=== PATIENT | male | born 1985 | race Caucasian/White ===

== ENCOUNTER → 2021-05-10 09:26 | Outpatient (BNVA) | payer OTHER, SELFPAY | PROVIDERS: PCP Internal Medicine; Visit Provider Internal Medicine | DX: S67.194A Crushing injury of right ring finger, initial encounter (principal); W24.0XXA Contact with lifting devices, not elsewhere classified, initial encounter | CPT/HCPCS: 12001; 29130; 73140; 99202 ==

== ENCOUNTER → 2021-05-12 08:58 | Outpatient (BNVA) | payer OTHER, SELFPAY | PROVIDERS: PCP Internal Medicine; Visit Provider Physician Assistant | DX: S67.194A Crushing injury of right ring finger, initial encounter (principal); X58.XXXA Exposure to other specified factors, initial encounter | CPT/HCPCS: 99213 ==

== ENCOUNTER → 2021-05-16 13:33 | Outpatient (BNVA) | payer OTHER, SELFPAY | PROVIDERS: PCP Internal Medicine; Visit Provider Physician Assistant Medical | DX: S67.194A Crushing injury of right ring finger, initial encounter (principal); W23.0XXA Caught, crushed, jammed, or pinched between moving objects, initial encounter | CPT/HCPCS: 99213 ==

== ENCOUNTER → 2021-05-23 11:11 | Outpatient (BNVA) | payer OTHER, SELFPAY | PROVIDERS: PCP Internal Medicine; Visit Provider Physician Assistant Medical | DX: S61.314A Laceration without foreign body of right ring finger with damage to nail, initial encounter (principal); W23.0XXA Caught, crushed, jammed, or pinched between moving objects, initial encounter | CPT/HCPCS: 99213 ==

== ENCOUNTER → 2021-06-06 11:02 | Outpatient (BNVA) | payer OTHER, SELFPAY | PROVIDERS: PCP Internal Medicine; Visit Provider Internal Medicine | DX: S61.314D Laceration without foreign body of right ring finger with damage to nail, subsequent encounter (principal); W23.0XXD Caught, crushed, jammed, or pinched between moving objects, subsequent encounter | CPT/HCPCS: 99213 ==

== ENCOUNTER → 2021-06-20 10:33 | Outpatient (BNVA) | payer OTHER, SELFPAY | PROVIDERS: PCP Internal Medicine; Visit Provider Internal Medicine | DX: S62.604D Fracture of unspecified phalanx of right ring finger, subsequent encounter for fracture with routine healing (principal); W23.0XXD Caught, crushed, jammed, or pinched between moving objects, subsequent encounter | CPT/HCPCS: 99213 ==

== ENCOUNTER → 2021-07-12 13:16 | Outpatient (BNVA) | payer OTHER, SELFPAY | PROVIDERS: PCP Internal Medicine; Visit Provider Internal Medicine | DX: S62.634D Displaced fracture of distal phalanx of right ring finger, subsequent encounter for fracture with routine healing (principal); W23.0XXD Caught, crushed, jammed, or pinched between moving objects, subsequent encounter | CPT/HCPCS: 99213 ==

== ENCOUNTER → 2023-01-30 08:09 | Outpatient (BNVA) | payer SELFPAY | PROVIDERS: PCP Internal Medicine; Visit Provider Internal Medicine | DX: Z02.79 Encounter for issue of other medical certificate (principal) ==

== ENCOUNTER 2024-06-28 23:48 | Inpatient (IN) | payer BC, SELFPAY ==
--- NOTE | ~2024-06-28 | CT_ITS ---
CLINICAL HISTORY: S p appendectomy, RUL tenderness R O hernia, diver CT abdomen and pelvis with contrast Comparison: CT - CT ABDOMEN PELVIS W IV CON - 06/29/24 04:46 EST Findings: The lung bases are clear. The liver, spleen, gallbladder, adrenal glands and pancreas are unremarkable. The kidneys, ureters and bladder are within normal limits. There is pronounced abnormal stranding about a thickened segment of sigmoid colon. The inflammatory change extends to a loop of thickened distal ileum. Reference axial images 72 through 79. Tiny foci of free air are present between these 2 bowel loops on axial 77. There is no drainable abscess currently. Small fat containing inguinal hernias. No acute osseous finding. Impression: Moderately severe diverticulitis with evidence of microperforation and reactive thickening of an adjacent loop of ileum. No obstruction or drainable abscess. Follow-up is recommended to ensure resolution. This document has been electronically signed by: Edy Aguilar MD on 06/29/2024 05:53:00
[2024-06-28 23:50] VITALS: BP 119/65; PULSE 100; RESP 18; TEMP 36.9; O2SAT 98; BMI 34.0
[2024-06-29 00:06] LABS: MANUAL DIFF FLAG NO
[2024-06-29 00:09] LABS: Basophils Absolute Auto 0.1 X10*3/uL (0.0-0.2); Basophils Percent Auto 0.4 % (0-2); Eosinophils Absolute Auto 0.1 X10*3/uL (0.0-0.4); Eosinophils Percent Auto 0.5 % (0-4); Hematocrit 44.8 % (42.0-52.0); Hemoglobin 15.9 g/dl (14.0-18.0); Imm Gran Abs Auto 0.05 X10*3/uL (0.00-0.03); Imm Gran Pct Auto 0.4 % (0.0-0.4); Lymphocytes Absolute Auto 2.2 X10*3/uL (1.2-4.9); Mean Corpuscular HGB Conc 35.5 g/dl (31.0-36.0); Mean Corpuscular Hemoglobin 29.1 pg (27.0-33.0); Mean Corpuscular Volume 82.1 fL (80.0-98.0); Mean Platelet Volume 10.4 fL (9.4-12.4); Monocytes Absolute Auto 1.2 X10*3/uL (0.1-1.2); Monocytes Percent Auto 8.9 % (2-11); Neutrophils Absolute Auto 9.5 x10*3/uL (2.0-8.3); Neutrophils Percent Auto 72.8 % (45-73); Platelet Count 257 X10*3/uL (160-400); Red Blood Count 5.46 X10*6/uL (4.60-5.80); Red Cell Distribution Width 12.6 % (11.0-16.0); White Blood Count 13.1 X10*3/uL (4.8-10.8)
[2024-06-29 01:12] VITALS: BP 118/59; PULSE 88; RESP 20; TEMP 37; O2SAT 96
[2024-06-29 01:30] LABS: Appearance Urine Clear; Color Urine Yellow; Glucose Urine UA Negative (Negative); Leukocyte Esterase Urine Negative (Negative); Nitrite Urine Negative (Negative); PH 5.5 (5.0-9.0); Specific Gravity - Urine 1.015 (1.005-1.025); Urine Blood Negative (Negative); Urine Ketones Negative (Negative); Urine Protein Negative (Neg-Trace)
[2024-06-29 01:35] LABS: Bacteria Urine None Seen (None Seen); Hyaline Casts Urine 0-2 /LPF (0-2); RBC Urine 0-2 /HPF (0-2); Squamous Epithelial Cell Urine 0-2 /HPF (0-2); WBC Urine 0-5 /HPF (0-5)
[2024-06-29 03:13] LABS: Anion Gap 14 (12-20)
[2024-06-29 03:18] LABS: Alanine Aminotransferase 54 U/L (0-40); Albumin Level 4.6 g/dL (3.5-5.0); Alkaline Phosphatase 92 U/L (39-117); Aspartate Amino Transferase 24 U/L (5-37); Bilirubin Total 0.8 mg/dL (0.0-1.0); Blood Urea Nitrogen 9 mg/dL (9-16); Calcium 8.9 mg/dL (8.4-10.2); Carbon Dioxide 23 mmol/L (22-29); Chloride 106 mmol/L (96-108); Creatinine Clr Calc Pharmacy 164.8; Estimated Glomerular Filt Rate > 60; Glucose Random 94 mg/dL (60-115); Lipase 16 U/L (8-78); Potassium 3.6 mmol/L (3.3-5.1); Sodium 139 mmol/L (135-145); Total Protein 8.1 g/dL (6.5-8.0)
--- NOTE | 2024-06-29 04:29 | ED.ABDPAIN ---
HPI - Abdominal Pain General Chief Complaint: Abdominal Pain Stated Complaint: abd pain Time Seen by Provider: 06/29/24 04:27 Source: patient Mode of arrival: ambulatory Limitations: no limitations History of Present Illness ED Provider: Dr. Donavan Chaney HPI narrative: 38-year-old male with a history of hernia repair, appendectomy who presents emergency department for evaluation of lower abdominal pain x2 days. Patient states that since his hernia repair 1 year prior he was had constant pain in his lower abdomen. He states over the past 2 days however this pain is change in his become sharp, severe, 9/10. Patient states that he was had a decreased appetite and food seems to make the pain worse. He denied fever but did have chills. He denied chest pain, shortness of breath, dyspnea on exertion. He had no nausea, vomiting, diarrhea, frequency, urgency or dysuria. He did not take any medications for his pain. Related Data Previous Rx's ?Medication ?Instructions ?Recorded amoxicillin 875 mg-potassium 1 tab PO BID #14 tabs 07/01/24 clavulanate 125 mg tablet oxycodone 5 mg tablet 5 mg PO Q4H PRN pain (scale score 07/01/24 7-10) #10 tabs Allergies Allergy/AdvReac Type Severity Reaction Status Date / Time No Known Allergies Allergy Verified 06/28/24 23:52 [No Known Allergies*] Review of Systems Review of Systems Yes all other systems are reviewed and are negative [facility] Social History Social History Household Members: Spouse and Children Patient Tobacco Use Status: Never used Tobacco service: No Physical Exam ED Vital Signs: Vital Signs - 24 hr 06/28/24 23:50 06/29/24 01:12 06/29/24 04:49 Temperature 98.4 F 98.6 F Pulse Rate 100 88 84 Respiratory Rate 18 20 20 Blood Pressure 119/65 118/59 L 115/51 L Pulse Oximetry 98 96 98 Oxygen Delivery Method Room Air Room Air Room Air BMI result Body Mass Index 34.0 Vital signs were normal Exam: General: Awake, alert in no distress Head: Normocephalic, atraumatic EENT: PERRL, Lids normal, sclera normal, conjunctiva normal, nose normal , ears normal, throat without erythema or exudates Neck: Supple, no adenopathy Lung: breath sounds symmetric, no wheezing, rales or rhonchi Chest: symmetric movement, nontender Heart: regular rate and rhythm, normal S1, S2, 2/6 systolic murmur best heard in the left lower sternal border Abdomen: soft, moderate right lower quadrant tenderness, mild right upper quadrant tenderness, negative Bishop sign and moderate left lower quadrant tenderness with no rebound, no voluntary or involuntary guarding Back: no vertebral tenderness, no CVAT Extremities: no deformities, moves all extremities symmetrically Neuro: Awake, alert, oriented, normal speech, cranial nerves intact, moves all extremities symmetrically Psych: Pleasant, cooperative Medical Decision Making Medical Decision Making [facility] Narrative: 38-year-old male with a history of hernia repair, appendectomy who presents emergency department for evaluation of lower abdominal pain x2 days. Patient states that since his hernia repair 1 year prior he was had constant pain in his lower abdomen. He states over the past 2 days however this pain is change in his become sharp, severe, 9/10. Patient states that he was had a decreased appetite and food seems to make the pain worse. Vital signs were normal. Physical examination revealed mild right upper quadrant tenderness and moderate right lower quadrant tenderness and moderate left lower quadrant tenderness. Differential diagnosis: ?Includes but is not limited to pancreatitis, diverticulitis, incarcerated hernia, partial small-bowel obstruction, anemia, electrolyte abnormalities Course: 04:43 My independent interpretation patient's laboratory evaluation as follows: Elevated white blood count 64927. Elevated ALT of 52. Lipase was normal. Urinalysis was negative. This time I do not have a clear etiology for the patient's pain, I did order a CT scan of the abdomen pelvis with IV contrast. Patient was also ordered to get normal saline x1 L and Toradol 15 mg IV. 06:[address] scan revealed moderately severe diverticulitis with evidence of microperforation and reactive thickening of an adjacent loop of ileum. No obstruction or drainable abscess. Given this finding, I ordered blood cultures x2, lactic acid, ESR and sed rate. Patient was treated with Zosyn 4.5 g IV. I did discuss the patient's presentation over tiger text with the covering surgeon, Dr. Arambula and he admitted the patient to his service for futher treatment. Admission/Observation Consideration of admission/observation: Escalation of care including admission/observation considered (Yes) Lab Data [facility] Lab Attestation statement: I reviewed the patient's lab results. 06/30/24 05:27 06/28/24 23:59 Labs: Lab Results 06/28/24 06/29/24 06/29/24 Range/Units 23:59 01:23 06:24 WBC 13.1 H (4.8-10.8) X10*3/uL RBC 5.46 (4.60-5.80) X10*6/uL Hgb 15.9 (14.0-18.0) g/dl Hct 44.8 (42.0-52.0) % MCV 82.1 (80.0-98.0) fL MCH 29.1 (27.0-33.0) pg MCHC 35.5 (31.0-36.0) g/dl RDW 12.6 (11.0-16.0) % Plt Count 257 (160-400) X10*3/uL MPV 10.4 (9.4-12.4) fL Immature Gran % (Auto) 0.4 (0.0-0.4) % Neut % (Auto) 72.8 (45-73) % Lymph % (Auto) 17.0 L (20-40) % Peach % (Auto) 8.9 (2-11) % Eos % (Auto) 0.5 (0-4) % Baso % (Auto) 0.4 (0-2) % Lymph # (Auto) 2.2 (1.2-4.9) X10*3/uL [place] # (Auto) 1.2 (0.1-1.2) X10*3/uL Eos # (Auto) 0.1 (0.0-0.4) X10*3/uL Baso # (Auto) 0.1 (0.0-0.2) X10*3/uL Abs Immat Gran (auto) 0.05 H (0.00-0.03) X10*3/uL Absolute Neuts (auto) 9.5 H (2.0-8.3) x10*3/uL Absolute Nucleated RBC 0.000 (0.0-0.012) X10*3/uL Nucleated RBC % (auto) 0.0 (0.0-0.2) /100WBC ESR 8 (0-15) MM/HR Sodium 139 (135-145) mmol/L Potassium 3.6 (3.3-5.1) mmol/L Chloride 106 (96-108) mmol/L Carbon Dioxide 23 (22-29) mmol/L Anion Gap 14 (12-20) BUN 9 (9-16) mg/dL Creatinine 0.73 (0.5-1.4) mg/dL Estim Creat Clear Calc 164.8 Estimated GFR > 60 Random Glucose 94 (60-115) mg/dL Lactic Acid 0.7 (0.5-2.0) mmol/L Calcium 8.9 (8.4-10.2) mg/dL Total Bilirubin 0.8 (0.0-1.0) mg/dL AST 24 (5-37) U/L ALT 54 H (0-40) U/L Alkaline Phosphatase 92 (39-117) U/L C-Reactive Protein 6.65 H (< or = 0.50) mg/dL Total Protein 8.1 H (6.5-8.0) g/dL Albumin 4.6 (3.5-5.0) g/dL Lipase 16 (8-78) U/L Urine Color Yellow Urine Appearance Clear Urine pH 5.5 (5.0-9.0) Ur Specific [place] 1.015 (1.005-1.025) Urine Protein Negative (Neg-Trace) mg/dL Urine Glucose (UA) Negative (Negative) mg/dL Urine Ketones Negative (Negative) mg/dL Urine Blood Negative (Negative) Urine Nitrite Negative (Negative) Ur Leukocyte Esterase Negative (Negative) Urine RBC 0-2 (0-2) /HPF Urine WBC 0-5 (0-5) /HPF Ur Squamous Epith Cells 0-2 (0-2) /HPF Urine Bacteria None Seen (None Seen) Hyaline Casts 0-2 (0-2) /LPF Radiology Impression Discussion of test interpretation with radiology: I have reviewed the radiologist's reading. Radiologist Impression: CT abdomen and pelvis with contrast Findings: The lung bases are clear. The liver, spleen, gallbladder, adrenal glands and pancreas are unremarkable. The kidneys, ureters and bladder are within normal limits. There is pronounced abnormal stranding about a thickened segment of sigmoid colon. The inflammatory change extends to a loop of thickened distal ileum. Reference axial images 72 through 79. Tiny foci of free air are present between these 2 bowel loops on axial 77. There is no drainable abscess currently. Small fat containing inguinal hernias. No acute osseous finding. Impression: Moderately severe diverticulitis with evidence of microperforation and reactive thickening of an adjacent loop of ileum. No obstruction or drainable abscess. Follow-up is recommended to ensure resolution. This document has been electronically signed by: Edy Aguilar MD on 06/29/2024 05:53:00 Medications Administered Discontinued Medications Generic Name Dose Route Start Last Admin Trade Name Freq PRN Reason Stop Dose Admin Acetaminophen 650 mg 06/29/24 07:47 06/30/24 20:34 Acetaminophen 325 Mg Tablet PO 650 mg Q6H PRN Administration Pain, Mild 1-3,fever,headache Hydromorphone HCl 0.5 mg 06/29/24 07:47 06/30/24 00:05 Hydromorphone Hcl 0.5 Mg/0.5 Ml Syringe IVPUSH 0.5 mg Q3H PRN Administration Pain, Severe (Pain Scale 7-10) Protocol Sodium Chloride 1,000 mls @ 999 mls/hr 06/29/24 04:35 06/29/24 06:48 Ns IV 06/29/24 05:35 Infused .Q1H1M STA Infusion Piperacillin Sod/Tazobactam 100 mls @ 200 mls/hr 06/29/24 06:11 06/29/24 07:18 Sod 4.5 gm/ Sodium Chloride IV 06/29/24 06:40 Infused ONCE ONE Infusion Dextrose/Lactated Ringer's 1,000 mls @ 125 mls/hr 06/29/24 08:00 07/01/24 05:41 D5lr IVCONT 125 mls/hr .Q8H [facility] Infusion Piperacillin Sod/Tazobactam 50 mls @ 100 mls/hr 06/29/24 12:00 07/01/24 05:41 Sod 3.375 gm/ Sodium Chloride IV Infused Q6H [facility] Infusion Iohexol 85 ml 06/29/24 05:00 06/29/24 05:00 Iohexol 350 Mg/Ml 100 Ml Infus..Btl IV 06/29/24 05:01 85 ml ONCE ONE Administration Ketorolac Tromethamine 15 mg 06/29/24 04:35 06/29/24 04:47 Ketorolac Tromethamine 15 Mg/Ml Vial IVPUSH 06/29/24 04:36 15 mg ONCE STA Administration Oxycodone HCl 5 mg 06/29/24 07:47 06/30/24 20:34 Oxycodone Hcl Immed Release 5 Mg Tablet PO 5 mg Q6H PRN Administration Pain, Moderate(Pain Scale 4-6) Sodium Chloride 3 ml 06/29/24 08:00 07/01/24 07:04 0.9 % Sodium Chloride Flush 3 Ml Syringe IVFLUSH Not Given QSHIFT [facility] Critical Care Time Critical Care Time Critical Care Time: Yes Total Critical Care Time: 45 Attestation: Critical Care: The patient was critically ill with a high probability of imminent or life threatening deterioration. I spent greater than 30 minutes of discontinuous time evaluating the patient,delivering critical care at the bedside, discussing and evaluating pertinent data with consultants. Critical care time does not include time spent performing separately billable procedures or teaching. Total time spent performing critical care was 45 minutes. Discharge Plan Discharge Clinical Impression: Perforation of sigmoid colon due to diverticulitis, Abdominal pain Patient Disposition: Admitted As Inpatient Interventions: Admission Worksheet (ED) Last Done: 06/29/24 20:31 Discharge Date/Time: 06/29/24 21:15
[2024-06-29] MEDS: 0.9 % Sodium Chloride 1,000 ML 999 ML IV (04:46)
[2024-06-29] MEDS: Ketorolac Tromethamine 15 MG/ML VIAL IVPUSH (04:47)
[2024-06-29 04:49] VITALS: BP 115/51; PULSE 84; RESP 20; O2SAT 98
[2024-06-29] MEDS: iohexoL 350 MG/ML 100 ML INFUS..BTL 85 ML IV (05:00)
[2024-06-29 06:34] VITALS: BP 110/51; PULSE 77; RESP 20; TEMP 36.7; O2SAT 97
[2024-06-29] MEDS: Piperacillin Sodium/Tazobactam 4.5 GM in 0.9 % Sodium Chloride 100 ML IV (06:34)
[2024-06-29 06:46] LABS: C Reactive Protein 6.65 mg/dL (< or = 0.50)
[2024-06-29 06:47] LABS: Lactic Acid 0.7 mmol/L (0.5-2.0)
[2024-06-29 07:34] LABS: Erythrocyte Sedimentation Rate 8 MM/HR (0-15)
--- NOTE | 2024-06-29 07:52 | PM.HPGS ---
History of Present Illness History of Present Illness Date of Service: 06/29/24 Chief complaint: abd pain Narrative: Anton Johansen is a 38 year old male presenting with complaints of abdominal pain in the lower abdomen for approximately 2 days duration. He reports undergoing a hernia repair approximately 1 year ago and having constant lower abdominal pain since then. He is also status post appendectomy. The pain has become more sharp over the last 2-3 days and upon presentation to the emergency department was about 9/10 in severity. He reports decreased appetite but denies nausea, vomiting, fever, chills, diarrhea or constipation. He had a normal bowel movement yesterday without bleeding. He denies a previous episode of similar symptoms. Workup in the emergency department revealed an elevated WBC of 13.1. CT abdomen and pelvis revealed sigmoid diverticulitis with microperforation. An adjacent loop of ileum is thickened as well. He is admitted to the surgical service for further management of his acute sigmoid diverticulitis. Review of Systems Review of Systems: Yes all other systems are reviewed and are negative PMF[facility] Social History Social History Smoked in Last 30 Days: No Use of substances other than those prescribed or required for medical reasons: No Advance Directives: No Do you have a plan to hurt others: No Plan Meds Allergies Allergy/AdvReac Type Severity Reaction Status Date / Time No Known Allergies Allergy Verified 06/28/24 23:52 [No Known Allergies*] Active Medications: Current Medications Acetaminophen (Acetaminophen 325 Mg Tablet) 650 mg PO Q6H PRN PRN Reason: Pain, Mild 1-3,fever,headache Calcium Carbonate (Calcium Carbonate 750 Mg Tab.Chew) 750 mg PO Q4H PRN PRN Reason: Heartburn Hydromorphone HCl (Hydromorphone Hcl 0.5 Mg/0.5 Ml Syringe) 0.5 mg IVPUSH Q3H PRN; Protocol PRN Reason: Pain, Severe (Pain Scale 7-10) Dextrose/Lactated Ringer's (D5lr) 1,000 mls @ 125 mls/hr IVCONT .Q8H [facility] Piperacillin Sod/Tazobactam (Sod 3.375 gm/ Sodium Chloride) 50 mls @ 100 mls/hr IV Q6H [facility] Magnesium Hydroxide (Milk Of Magnesia 30 Ml Oral.Susp) 30 ml PO DAILY PRN PRN Reason: Constipation Melatonin (Melatonin 3 Mg Tablet) 6 mg PO BEDTIME PRN PRN Reason: Insomnia Ondansetron HCl (Ondansetron Hcl 4 Mg/2 Ml Vial) 4 mg IVPUSH QID PRN PRN Reason: Nausea Oxycodone HCl (Oxycodone Hcl Immed Release 5 Mg Tablet) 5 mg PO Q6H PRN PRN Reason: Pain, Moderate(Pain Scale 4-6) Sodium Chloride (0.9 % Sodium Chloride Flush 3 Ml Syringe) 3 ml IVFLUSH QSHIFT [facility] Physical Exam Vital Signs: Vital Signs: Last Vital Signs Temp 98.1 F 06/29/24 06:34 Pulse 77 06/29/24 06:34 Resp 20 06/29/24 06:34 BP 110/51 L 06/29/24 06:34 Pulse Ox 97 06/29/24 06:34 O2 Del Method Room Air 06/29/24 06:34 BMI result Body Mass Index 34.0 Const: General: cooperative and no acute distress Nutritional Appearance: well nourished Orientation/consciousness: patient oriented x3 Limitations: no limitations HEENT: Head: Yes normocephalic and Yes atraumatic Ears: hearing grossly normal bilaterally Resp: Effort & Inspection: normal respiratory effort, no audible wheezes, no cough and no respiratory distress Cardio: Jugular venous distension: no JVD GI: Inspection: Yes normal to inspection Palpation (GI): Soft to palpation, Tenderness to palpation present (GI) in the LLQ, no guarding, not rigid and No hepatosplenomegaly present Percussion: Yes normal to percussion Auscultation: normal bowel sounds Rectal Exam - Male: Yes deferred Skin: Other: Warm, dry, no rash Neuro: General: patient oriented x3 Extrem: General: Yes no clubbing, cyanosis or edema Results Results Labs: Short CBC 06/28/24 Range/Units 23:59 WBC 13.1 H (4.8-10.8) X10*3/uL Hgb 15.9 (14.0-18.0) g/dl Hct 44.8 (42.0-52.0) % Plt Count 257 (160-400) X10*3/uL BMP 06/28/24 23:59 Sodium 139 Potassium 3.6 Chloride 106 Carbon Dioxide 23 BUN 9 Creatinine 0.73 Calcium 8.9 Liver Function 02/01/25 Range/Units 23:59 Total Bilirubin 0.8 (0.0-1.0) mg/dL AST 24 (5-37) U/L ALT 54 H (0-40) U/L Alkaline Phosphatase 92 (39-117) U/L Albumin 4.6 (3.5-5.0) g/dL Urine 06/29/24 Range/Units 01:23 Urine Color Yellow Urine Appearance Clear Urine pH 5.5 (5.0-9.0) Ur Specific [place] 1.015 (1.005-1.025) Urine Protein Negative (Neg-Trace) mg/dL Urine Glucose (UA) Negative (Negative) mg/dL Abdomen CT scan report/results: image reviewed CT scan - pelvis: image reviewed Assessment and Plan (1) Perforation of sigmoid colon due to diverticulitis: Status: Acute Plan 38-year-old male patient presenting with new onset of abdominal pain left lower quadrant found on workup to have tenderness in the left lower quadrant, elevated WBC and CT findings suggestive of sigmoid diverticulitis. CT reveals evidence of a microperforation as well. He is being admitted to the surgical service for IV antibiotics. I reviewed the CT findings in detail with the patient and he expressed understanding. We will keep on clear liquids, start on Zosyn. Repeat CBC in a.m. tomorrow. Quality Stroke Does the patient have a stroke diagnosis?: No VTE Prior VTE?: No VTE Risk Level:: Surgical - low VTE Device Contraindication: N/A - Device Ordered VTE Drug Contraindication: Treatment Not Indicated Procedures Date of Service Date of Service: 06/29/24
[2024-06-29] MEDS: Dextrose 5 % and Lactated Ring 1,000 ML 125 ML IVCONT ×2 (08:45→16:24)
--- NOTE | 2024-06-29 09:33 | PHA.MEDREC ---
Addendum entered by Kandis Lam RPh 06/29/24 09:45: [facility] reviewed Original Note: Pharmacy Consult ? Medication Reconciliation Pharmacy has completed the medication reconciliation. Spoke with patient to confirm. He is no longer using any creams.
--- NOTE | 2024-06-29 09:36 | PC.NURSE ---
this RN resumed care of pt at 0645. a&ox4. vss and up to date. pt offers no complaints at this time. denies pain or any episodes of nausea/vomiting/diarrhea. pt is on a clear liquid diet - declined offer of anything to eat/drink at this time. D5LR infusing @ 125mls/hr. pt pending bed assignment at this time. no sob/wob noted. respirations even/unlabored. plan of care ongoing. call oneill placed within reach.
[2024-06-29] MEDS: Piperacillin Sodium/Tazobactam 3.375 GM in 0.9 % Sodium Chloride 50 ML IV ×3 (12:33→23:56)
[2024-06-29] MEDS: HYDROmorphone HCl 0.5 MG/0.5 ML SYRINGE IVPUSH (16:24)
--- NOTE | 2024-06-29 16:40 | PC.NURSE ---
new bag of D5LR infusing @ 125mls/hr. pt reporting increase in lower abd pain - requesting prn medication. medication administered per provider order. effectiveness pending. pt otherwise continues to rest in no apparent distress. no sob/wob noted. respirations even/unlabored. plan of care ongoing. call oneill placed within reach.
[2024-06-29 17:03] VITALS: BP 116/57; PULSE 82; RESP 18; TEMP 36.8; O2SAT 96
[2024-06-29 20:35] VITALS: BP 132/55; PULSE 85; RESP 16; TEMP 37.2; O2SAT 99
[2024-06-29] MEDS: oxyCODONE HCl Immed Release 5 MG TABLET PO (20:37)
[2024-06-29 21:30] VITALS: BP 139/73; PULSE 86; RESP 18; TEMP 36.4; O2SAT 97
[2024-06-30] MEDS: HYDROmorphone HCl 0.5 MG/0.5 ML SYRINGE IVPUSH (00:05)
[2024-06-30 04:00] VITALS: BP 120/62; PULSE 75; RESP 18; TEMP 36.4; O2SAT 97
[2024-06-30 06:02] LABS: MANUAL DIFF FLAG NO
[2024-06-30] MEDS: Piperacillin Sodium/Tazobactam 3.375 GM in 0.9 % Sodium Chloride 50 ML IV ×4 (06:06→23:04)
[2024-06-30 06:20] LABS: Basophils Absolute Auto 0.1 X10*3/uL (0.0-0.2); Basophils Percent Auto 0.4 % (0-2); Eosinophils Absolute Auto 0.1 X10*3/uL (0.0-0.4); Eosinophils Percent Auto 0.6 % (0-4); Hematocrit 41.7 % (42.0-52.0); Hemoglobin 14.5 g/dl (14.0-18.0); Imm Gran Abs Auto 0.06 X10*3/uL (0.00-0.03); Imm Gran Pct Auto 0.5 % (0.0-0.4); Lymphocytes Absolute Auto 1.8 X10*3/uL (1.2-4.9); Mean Corpuscular HGB Conc 34.8 g/dl (31.0-36.0); Mean Corpuscular Volume 83.4 fL (80.0-98.0); Mean Platelet Volume 10.9 fL (9.4-12.4); Monocytes Absolute Auto 1.1 X10*3/uL (0.1-1.2); Monocytes Percent Auto 9.7 % (2-11); Neutrophils Absolute Auto 8.3 x10*3/uL (2.0-8.3); Neutrophils Percent Auto 72.8 % (45-73); Platelet Count 227 X10*3/uL (160-400); Red Cell Distribution Width 12.6 % (11.0-16.0); White Blood Count 11.4 X10*3/uL (4.8-10.8)
[2024-06-30] MEDS: oxyCODONE HCl Immed Release 5 MG TABLET PO ×2 (07:34→20:34)
[2024-06-30] MEDS: Dextrose 5 % and Lactated Ring 1,000 ML 125 ML IVCONT ×3 (07:35→20:37)
[2024-06-30 07:38] VITALS: BP 126/61; PULSE 82; RESP 16; TEMP 36.5; O2SAT 96
--- NOTE | 2024-06-30 09:36 | MHC.CM.PN ---
PT IS INDEPENDENT HAS NO SERVICES DC PLAN HOME NO SERVICES PT HAS OWN RIDE HOME
--- NOTE | 2024-06-30 10:02 | P.PNGS_ITS ---
Subjective Subjective Date of Service: 06/30/24 Interval history: Thinks he feels a little better but continues to need pain medication. Tolerating liquids without nausea, vomiting. OOB and ambulating. Physical Exam 2 Vital Signs: Vital Signs: Last Vital Signs Temp 97.7 F 06/30/24 07:38 Pulse 82 06/30/24 07:38 Resp 16 06/30/24 07:38 BP 126/61 06/30/24 07:38 Pulse Ox 96 06/30/24 07:38 O2 Del Method Room Air 06/30/24 07:38 BMI result Body Mass Index 34.0 Const: General: comfortable, no acute distress and alert O rientation/consciousness: patient oriented x3 Resp: Effort & Inspection: normal respiratory effort GI: Inspection: No distended Palpation (GI): Soft to palpation, Tenderness to palpation present (GI) (pinpoint LLQ tenderness, moderate ) and no guarding Skin: General skin exam: no rashes or lesions noted Neuro: General: patient oriented x3 Objective Data Active Medications Acetaminophen (Acetaminophen 325 Mg Tablet) 650 mg PO Q6H PRN PRN Reason: Pain, Mild 1-3,fever,headache Calcium Carbonate (Calcium Carbonate 750 Mg Tab.Chew) 750 mg PO Q4H PRN PRN Reason: Heartburn Hydromorphone HCl (Hydromorphone Hcl 0.5 Mg/0.5 Ml Syringe) 0.5 mg IVPUSH Q3H PRN; Protocol PRN Reason: Pain, Severe (Pain Scale 7-10) Last Admin: 06/30/24 00:05 Dose: 0.5 mg Documented By: MALCOLM Dextrose/Lactated Ringer's (D5lr) 1,000 mls @ 125 mls/hr IVCONT .Q8H [facility] Last Admin: 06/30/24 07:35 Dose: 125 mls/hr Documented By: ARMINDA Piperacillin Sod/Tazobactam (Sod 3.375 gm/ Sodium Chloride) 50 mls @ 100 mls/hr IV Q6H [facility] Last Infusion: 06/30/24 07:25 Dose: Infused Documented By: ARMINDA Magnesium Hydroxide (Milk Of Magnesia 30 Ml Oral.Susp) 30 ml PO DAILY PRN PRN Reason: Constipation Melatonin (Melatonin 3 Mg Tablet) 6 mg PO BEDTIME PRN PRN Reason: Insomnia Ondansetron HCl (Ondansetron Hcl 4 Mg/2 Ml Vial) 4 mg IVPUSH QID PRN PRN Reason: Nausea Oxycodone HCl (Oxycodone Hcl Immed Release 5 Mg Tablet) 5 mg PO Q6H PRN PRN Reason: Pain, Moderate(Pain Scale 4-6) Last Admin: 06/30/24 07:34 Dose: 5 mg Documented By: ARMINDA Sodium Chloride (0.9 % Sodium Chloride Flush 3 Ml Syringe) 3 ml IVFLUSH QSHIFT [facility] Last Admin: 06/30/24 07:20 Dose: Not Given Documented By: ARMINDA Non-Admin Reason: IV Running Labs 06/30/24 05:27 06/28/24 23:59 Labs: Laboratory Results - last 24 hr 06/30/24 05:27 MCV 83.4 MCH 29.0 MCHC 34.8 RDW 12.6 Plt Count 227 MPV 10.9 Immature Gran % (Auto) 0.5 H Neut % (Auto) 72.8 Lymph % (Auto) 16.0 L [place] % (Auto) 9.7 Eos % (Auto) 0.6 Baso % (Auto) 0.4 Lymph # (Auto) 1.8 [place] # (Auto) 1.1 Eos # (Auto) 0.1 Baso # (Auto) 0.1 Abs Immat Gran (auto) 0.06 H Absolute Neuts (auto) 8.3 Absolute Nucleated RBC 0.000 Nucleated RBC % (auto) 0.0 Microbiology Microbiology Results: Microbiology 06/29/24 06:33 Blood Culture - Preliminary Blood - Venous No growth after 24 hours. 06/29/24 06:24 Blood Culture - Preliminary Blood - Venous No growth after 24 hours. Procedures Date of Service Date of Service: 06/30/24 Progress Note: A&P Assessment and plan (1) Perforation of sigmoid colon due to diverticulitis: Status: Acute Plan 38 year old male admitted with sigmoid diverticulitis with microperforation. Somewhat improved symptomatically this morning. Abd with moderate LLQ tenderness without peritoneal signs. WBC improved this morning. Will continue conserative measures with IV abx, IVF, and continue clear liquids for now. Encouraged OOB/ambulation. Patient comfortable with plan. Time Spent With Patient Time: Total time managing care of this patient today ____ minutes. Quality Stroke Does the patient have a stroke diagnosis?: No VTE Prior VTE?: No VTE Risk Level:: Surgical - low VTE Device Contraindication: N/A - Device Ordered VTE Drug Contraindication: Treatment Not Indicated
[2024-06-30 15:01] VITALS: BP 132/75; PULSE 80; RESP 18; TEMP 36.4; O2SAT 98
[2024-06-30] MEDS: Acetaminophen 325 MG TABLET 650 MG PO (20:34)
[2024-06-30] MEDS: 0.9 % Sodium Chloride Flush 3 ML SYRINGE IVFLUSH (23:07)
[2024-07-01 03:30] VITALS: BP 111/53; PULSE 73; RESP 18; TEMP 36.3; O2SAT 97
[2024-07-01] MEDS: Dextrose 5 % and Lactated Ring 1,000 ML 125 ML IVCONT (05:07)
[2024-07-01] MEDS: Piperacillin Sodium/Tazobactam 3.375 GM in 0.9 % Sodium Chloride 50 ML IV (05:07)
--- NOTE | 2024-07-01 07:30 | PM.PNGS ---
Subjective Subjective Date of Service: 07/01/24 <Lashawn Boss PA-C - Last Filed: 07/01/24 07:35> 07/01/24 <Stephon Arambula MD - Last Filed: 07/01/24 07:45> Interval history: Feels much improved this morning. Pain very mild. Tolerating solid diet without nausea, vomiting or worsening abd pain. Had a liquid BM yesterday with some increased pain but it resolved. Feels ready for discharge. <Lashawn Boss PA-C - Last Filed: 07/01/24 07:35> Physical Exam Vital Signs: Vital Signs: Last Vital Signs Temp 97.3 F 07/01/24 03:30 Pulse 73 07/01/24 03:30 Resp 18 07/01/24 03:30 BP 111/53 L 07/01/24 03:30 Pulse Ox 97 07/01/24 03:30 O2 Del Method Room Air 07/01/24 03:30 BMI result Body Mass Index 34.0 <Lashawn Boss PA-C - Last Filed: 07/01/24 07:35> Const: General: comfortable, no acute distress and alert <Lashawn Boss PA-C - Last Filed: 07/01/24 07:35> Orientation/consciousness: patient oriented x3 <Lashawn Boss PA-C - Last Filed: 07/01/24 07:35> Resp: Effort & Inspection: normal respiratory effort <Lashawn Boss PA-C - Last Filed: 07/01/24 07:35> GI: Inspection: No distended <Lashawn Boss PA-C - Last Filed: 07/01/24 07:35> Palpation (GI): Soft to palpation, nontender and no guarding <Lashawn Boss PA-C - Last Filed: 07/01/24 07:35> Percussion: Yes normal to percussion <SHAJI Valente Last Filed: 07/01/24 07:35> Skin: General skin exam: no rashes or lesions noted <Lashawn Boss PA-C - Last Filed: 07/01/24 07:35> Neuro: General: patient oriented x3 and moves all extremities <Lashawn Boss PA-C - Last Filed: 07/01/24 07:35> Objective Data Active Medications Acetaminophen (Acetaminophen 325 Mg Tablet) 650 mg PO Q6H PRN PRN Reason: Pain, Mild 1-3,fever,headache Last Admin: 06/30/24 20:34 Dose: 650 mg Documented By: NIKOLAY Calcium Carbonate (Calcium Carbonate 750 Mg Tab.Chew) 750 mg PO Q4H PRN PRN Reason: Heartburn Hydromorphone HCl (Hydromorphone Hcl 0.5 Mg/0.5 Ml Syringe) 0.5 mg IVPUSH Q3H PRN; Protocol PRN Reason: Pain, Severe (Pain Scale 7-10) Last Admin: 06/30/24 00:05 Dose: 0.5 mg Documented By: MALCOLM Dextrose/Lactated Ringer's (D5lr) 1,000 mls @ 125 mls/hr IVCONT .Q8H [facility] Last Infusion: 07/01/24 05:41 Dose: 125 mls/hr Documented By: NIKOLAY Piperacillin Sod/Tazobactam (Sod 3.375 gm/ Sodium Chloride) 50 mls @ 100 mls/hr IV Q6H [facility] Last Infusion: 07/01/24 05:41 Dose: Infused Documented By: NIKOLAY Magnesium Hydroxide (Milk Of Magnesia 30 Ml Oral.Susp) 30 ml PO DAILY PRN PRN Reason: Constipation Melatonin (Melatonin 3 Mg Tablet) 6 mg PO BEDTIME PRN PRN Reason: Insomnia Ondansetron HCl (Ondansetron Hcl 4 Mg/2 Ml Vial) 4 mg IVPUSH QID PRN PRN Reason: Nausea Oxycodone HCl (Oxycodone Hcl Immed Release 5 Mg Tablet) 5 mg PO Q6H PRN PRN Reason: Pain, Moderate(Pain Scale 4-6) Last Admin: 06/30/24 20:34 Dose: 5 mg Documented By: NIKOLAY Sodium Chloride (0.9 % Sodium Chloride Flush 3 Ml Syringe) 3 ml IVFLUSH QSHIFT [facility] Last Admin: 07/01/24 07:04 Dose: Not Given Documented By: ARMINDA Non-Admin Reason: IV Running <Lashawn Boss PA-C - Last Filed: 07/01/24 07:35> Labs CBC & Chem 7: 06/30/24 05:27 06/28/24 23:59 <Lashawn Boss PA-C - Last Filed: 07/01/24 07:35> Microbiology Microbiology Results: Microbiology 06/29/24 06:33 Blood Culture - Preliminary Blood - Venous No growth after 24 hours. 06/29/24 06:24 Blood Culture - Preliminary Blood - Venous No growth after 24 hours. <Lashawn Boss PA-C - Last Filed: 07/01/24 07:35> Procedures Date of Service Date of Service: 07/01/24 <Lashawn Boss PA-C - Last Filed: 07/01/24 07:35> 07/01/24 <Stephon Arambula MD - Last Filed: 07/01/24 07:45> Progress Note: A&P Assessment and plan (1) Perforation of sigmoid colon due to diverticulitis: Status: Acute <Lashawn Boss PA-C - Last Filed: 07/01/24 07:35> Assessment and Plan: 38 year old male admitted with sigmoid diverticulitis with microperforation. Clinically improved with resolved symptoms, tolerating solid diet, having bowel movements. Abd very benign, soft nontender. Stable for dc to home today on oral abx. F/u in office in 1 week. Patient comfortable with plan. <Lashawn Boss PA-C - Last Filed: 07/01/24 07:35> 38 year old male admitted with sigmoid diverticulitis with microperforation. Clinically improved with resolved symptoms, tolerating solid diet, having bowel movements. Abd very benign, soft nontender. Stable for dc to home today on oral abx. F/u in office in 1 week. Patient comfortable with plan. Patient independently examined and the above findings confirmed. He is much improved with minimal tenderness in the suprapubic location. Agree with discharge to home with follow up in the office in one week. Continue po antibiotics, Augmentin. <Stephon Arambula MD - Last Filed: 07/01/24 07:45> Time Spent With Patient Time: Total time managing care of this patient today ____ minutes. <Lashawn Boss PA-C - Last Filed: 07/01/24 07:35> Quality Stroke Does the patient have a stroke diagnosis?: No <Lashawn Boss PA-C - Last Filed: 07/01/24 07:35> VTE Prior VTE?: No <Lashawn Boss PA-C - Last Filed: 07/01/24 07:35> VTE Risk Level:: Surgical - low <Lashawn Boss PA-C - Last Filed: 07/01/24 07:35> VTE Device Contraindication: N/A - Device Ordered <Lashawn Boss PA-C - Last Filed: 07/01/24 07:35> VTE Drug Contraindication: Treatment Not Indicated <Lashawn Boss PA-C - Last Filed: 07/01/24 07:35>
[2024-07-01 07:55] VITALS: BP 115/56; PULSE 67; RESP 18; TEMP 36.1; O2SAT 97
--- NOTE | 2024-07-01 12:58 | MHC.CM.PN ---
Patient is discharged to home self care. He has arranged for private transport home.
--- NOTE | 2024-07-01 14:09 | P.DS_ITS ---
DS: Providers Provider Date of Service: 07/01/24 Date of admission: 06/29/24 07:48 Date of discharge: 07/01/24 Primary care physician: Arden Wilson MD Attending physician on admission: Stephon Arambula Attending physician on discharge: Stephon Arambula DS: Diagnosis Discharge Diagnosis (1) Perforation of sigmoid colon due to diverticulitis: Status: Acute DS: Summary Hospital Course Hospital Course: HPI AT ADMISSION: Anton Johansen is a 38 year old male presenting with complaints of abdominal pain in the lower abdomen for approximately 2 days duration. He reports undergoing a hernia repair approximately 1 year ago and having constant lower abdominal pain since then. He is also status post appendectomy. The pain has become more sharp over the last 2-3 days and upon presentation to the emergency department was about 9/10 in severity. He reports decreased appetite but denies nausea, vomiting, fever, chills, diarrhea or constipation. He had a normal bowel movement yesterday without bleeding. He denies a previous episode of similar symptoms. He denies prior colonoscopy. Workup in the emergency department revealed an elevated WBC of 13.1. CT abdomen and pelvis revealed sigmoid diverticulitis with microperforation. An adjacent loop of ileum is thickened as well. HOSPITAL COURSE: He was admitted to the surgical service for further management of his acute sigmoid diverticulitis. He was nontoxic appearing without peritoneal signs. Conservative measures were continued. He was kept on clear liquids, IV Zosyn, IVF. He had improvement in his symptoms and his diet was slowly advanced. He began moving his bowels. On the day of discharge, he had minimal pain. He was tolerating a solid diet. His abdomen was benign and soft and nontender. He was hemodynamically stable. He was discharged to home on 07/01/24 in stable condition on a course of oral augmentin. He is to follow up in the office in 1 week. Status at Discharge Functional status at discharge: independent ambulation Overall status at discharge: patient is progressing back to baseline Time Attestation Discharge Coordination Time (in mins): 30 Quality: Safe Use of Opioids Does Pt have an Active Cancer Diagnosis on the Problem List?: No Quality: Stroke Does the patient have a stroke diagnosis?: No Physical Exam Vital Signs: Vital Signs: Last Vital Signs Temp 97 F 07/01/24 07:55 Pulse 67 07/01/24 07:55 Resp 18 07/01/24 07:55 BP 115/56 L 07/01/24 07:55 Pulse Ox 97 07/01/24 07:55 O2 Del Method Room Air 07/01/24 07:55 BMI result Body Mass Index 34.0 Const: General: comfortable, no acute distress and alert Resp: Effort & Inspection: normal respiratory effort GI: Inspection: No distended Palpation (GI): Soft to palpation, nontender and no guarding Skin: General skin exam: no rashes or lesions noted DS: Data Data Completed and Pending Labs on day of discharge: Preliminary micro results at discharge 06/29/24 06:33 Blood Culture - Preliminary Blood - Venous No growth after 48 hours. 06/29/24 06:24 Blood Culture - Preliminary Blood - Venous No growth after 48 hours. Discharge Plan Discharge Anticipated Discharge Date/Time: 07/01/24 07:35 Patient Disposition: Home, Self-Care Discharge Diagnosis: sigmoid diverticulitis with microperforation Referrals: Arden Wilson MD [Primary Care Provider] - 1 Week Stephon Arambula MD [Physician] - 1 Week Discharge Medications: New oxycodone 5 mg tablet 5 mg PO Q4H PRN (Reason: pain (scale score 7-10)) Qty: 10 0RF Rx Instructions: Partial Fill upon patient request. amoxicillin-pot clavulanate 875-125 mg tablet 1 tab PO BID Qty: 14 0RF Discharge Orders: Discharge Order (Routine); Ordered 07/01/24 Ordered By: Lashawn Boss Diet: low residue diet Activity on Discharge: As tolerated Stand Alone Forms: Patient Portal Discharge page, Work/School Release Print Language: [place] Activity Restrictions/Additional Instructions: Follow up in office in a week. ([phone]) Call Your Doctor If: ? ? -Your temperature exceeds 101.5? F? ? ? -You experience excessive pain or swelling ? ? -You have an unexpected reaction to medication ? ? -You experience continued vomiting/nausea Care Plan Goals: Return to baseline health. Finish abx course. Health Concerns: acute sigmoid diverticulitis with microperforation Plan of Treatment: Nonoperative with IV transitioned to oral abx F/u in office in 1 week Assessment: Improved Discharge Date/Time: 07/01/24 09:47
== END 2024-07-01 09:47 | disposition home or self-care (01) | DRG 244 ==
LOC: HO.ED 06-29 06:27 → HO.EDOVER 06-29 08:02 → HO.S3 06-29 19:56
PROVIDERS: Admitting Provider Surgery; Emergency Provider Emergency Medicine Emergency Medical Services; PCP Internal Medicine; Visit Provider Surgery
DX: K57.20 Diverticulitis of large intestine with perforation and abscess without bleeding (principal)
CPT/HCPCS: 36415; 74177; 80053; 81001; 83605; 83690; 85025; 85652; 86140; 87040; 99285; J1171; J1885; J2543; Q9967

== ENCOUNTER → 2024-06-29 04:39 | Outpatient (BNV) | payer BC, SELFPAY | PROVIDERS: Emergency Provider Emergency Medicine Emergency Medical Services; PCP Internal Medicine; Visit Provider Radiology Vascular & Interventional Radiology | DX: K57.92 Diverticulitis of intestine, part unspecified, without perforation or abscess without bleeding (principal) | CPT/HCPCS: 74177 ==

== ENCOUNTER 2024-07-15 11:23 | Outpatient (AMB) | payer BC, SELFPAY ==
--- NOTE | 2024-07-15 11:27 | A.OFFVIS_ITS ---
Vital Signs 07/15/24 11:38 Height 5 ft 9 in Weight 235 lb BMI 34.7 BP 139/63 Blood Pressure Location Lt brachial Position Sitting Pulse 76 Intake Visit Reasons: acute sigmoid diverticulitis with microperforation Intake Note: Patient is seen in office for ER follow up visit, following acute sigmoid diverticulitis with microperforation. 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 He was found to have sigmoid diverticulitis with a microperforation. This was his 1st episode of diverticulitis but did have a distant episode of upper abdominal pain approximately 10 years prior. Since his discharge from the hospital he feels much improved with decreased abdominal pain and normal bowels. He denies any fever or chills. He completed the antibiotics as prescribed. [facility] Surgical History Hx of right inguinal hernia repair Hx of appendectomy Social History Household Members: Spouse and Children Alcohol intake: current Alcohol intake frequency: holidays/special occasions only Patient Tobacco Use Status: Never used Tobacco service: No Review of Systems Const All systems reviewed & are unremarkable except as noted in HPI and below Physical Exam Vital Signs: Last Vital Signs Pulse 76 07/15/24 11:38 BP 139/63 07/15/24 11:38 BMI result Body Mass Index 34.7 Last Vital Signs Temp 97 F 07/01/24 07:55 Pulse 67 07/01/24 07:55 Resp 18 07/01/24 07:55 BP 115/56 L 07/01/24 07:55 Pulse Ox 97 07/01/24 07:55 O2 Del Method Room Air 07/01/24 07:55 BMI result Body Mass Index 34.0 Const General: comfortable, no acute distress and alert Resp Effort & Inspection: normal respiratory effort, no audible wheezes, no cough and no respiratory distress GI Inspection: No distended Palpation (GI): Soft to palpation, nontender and no guarding Skin General skin exam: no rashes or lesions noted Extrem General: No edema Assessment & Plan Assessment & Plan (1) Perforation of sigmoid colon due to diverticulitis: Code(s): K57.20 - Diverticulitis of large intestine with perforation and abscess without bleeding Category: Medical Plan 38-year-old male patient with a recent episode of sigmoid diverticulitis with microperforation. He is much improved currently with no further abdominal pain. His abdominal exam is much improved as well. We discussed elective sigmoid colectomy versus continued observation along with the relative risks and benefits. He wishes to avoid surgery at this time and I encouraged him to call should his pain return. I have prescribed additional antibiotics to have on hand should the abdominal pain return. He should call for follow-up examination if the pain returns as well. He expressed understanding and agrees with the plan. Medications: New amoxicillin-pot clavulanate 875-125 mg 1 tab PO BID 20 tabs 0RF Stephon Arambula MD K57.20 - Diverticulitis of large intestine with perforation and abscess without bleeding Discontinued amoxicillin-pot clavulanate 875-125 mg Discontinued Reason: Patient Completed Course 1 tab PO BID 14 tabs 0RF MIRZA Huffman oxycodone Partial Fill upon patient request. Discontinued Reason: Patient Completed Course 5 mg PO Q4H PRN 10 tabs 0RF pain (scale score 7-10) MIRZA Huffman Coding Level of Care Code Est Pt Level 3 (00135) Diagnoses Perforation of sigmoid colon due to diverticulitis K57.20
[2024-07-15 11:38] VITALS: BP 139/63; PULSE 76; BMI 34.7
--- OUTSIDE RECORDS SUMMARY | 2024-07-15 12:40 | XMS_ITS ---
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 No Tobacco Control (Standard) Question Answer Notes Tobacco use: Nonsmoker Additional Findings: Tobacco non-user Current no nsmoker AUDIT-C (Standard) Question Answer Notes Did you have a drink contain ing alcohol in the past year? Yes How often did you have six o r more drinks on one occasion in the past year? Declined to specify (0 point) How many drinks did you have on a typical day when you were drinking in the past year? Declined to specify (0 point) How often did you have a dri nk containing alcohol in the past year? Monthly or less (1 point) Points 1 Interpretation Negative Encounters Encounter Location Date Provider Diagnosis [address] [address] 06/12/2024 Isiah Garcia Plan Of Treatment No Information Progress Notes * Anton NOVAKDOB:1985 ([age] yo M)Acc No.[id number]:06/12/2024 Progress Notes Patient:?Anton NOVAK Provider:?Isiah Garcia D.P.M. :1985???Age:38 Y???Sex:Male Isaiah e:06/12/2024 Address:[address] [place] [address] [id number] Subjective: * Chief Complaints: * ??? * ROS:?General/Constitutional:?Nausea?denies.?Vomiting?denies.?Hunger Thirst?denies.?Loss appetite?denies.?Chills?denies.?Fatigue?denies.?Fever?denies.?Night Sweats?denies.?Unexplained weight loss?denies.?Unexplained weight gain?denies.?HEENTM:?Dentures?denies.?Dizziness?denies.?Glasses/contacts?denies.?Retinopathy?de nies.?Blurred/double vision?denies.?TMJ?denies.?Discharge/drainage?denies.?Implants?denies.?Sore throat?denies.?Dental implants?denies.?Hard of hearing ?denies.?Difficulty chewing/swallowing/speaking?denies.?Nose bleeds?denies.?Sore mouth?denies.?Respiratory:?On Oxygen?denies.?Pneumonia/pleurisy?denies.?Bronchitis?denies.?Emphysema?denies.?C oughing?denies.?Cough blood?denies.?Shortness of breath?denies.?Wheezing?denies.?Cardiovascular:?Pacemaker?denies.?MVP?denies.?WPW?denies.?CHF?denies.?Heart attack?denies.?Septal defect?denies.?Rapid beat?denies.?Chest pain ?denies.?Atrial Fib.?denies.?Murmur/Palpitations?denies.?Gastrointestinal:?Hemorrhoids?denies.?Stomach/Abdominal pain?denies.?Dark blood stool?denies.?Irritable bowel ?denies.?Constipation?denies.?Diarrhea?denies.?Hematology:?Swelling?denies.?Clots?denies.?Varicose Veins?denies.?Bruising?denies.?Bleeding problem?denies.?Genitourinary:?Blood urine?denies.?Frequent/Painfu/urination/bladder control?denies.?Kidney stones?denies.?Infection (UTI)?denies.?Nephropathy?denies.?sex trans dis (STD)?denies.?Prostate?denies.?Musculoskeletal:?Hammertoes?denies.?Bunions?denies.?Back Pain?denies.?Muscle Cramps/ Resting?denies.?Muscle cramps / walking?denies.?Generalized aches and pains?denies.?Weakness?denies.?Integ.:?[place]?denies.?Scars?admits.?Corns/calluses?denies.?Ingrown nails?denies.?Painful nails?denies.?Open Sores?denies.?Rashes?admits.?Neurologic:?Difficulty sleeping?denies.?Brain disorder?denies.?Numbness?denies.?Balance trouble?denies.?Confusion?denies.?Fainting/blackouts?denies.?Tingling?denies.?Tr emors?denies.? * Medical History:?Asthma, Cov id-19, Headaches/Migraines, Replacement Heart Valves. * Surgical History:?heart aort ic 02/08/2001, hernia 03/2023. * Family History:?Paternal Gra nd Mother: diagnosed with Unspecified heart disease.?Maternal Grand Mother: diagnosed with Family history of arthritis.?Maternal uncle: diagnosed with Diabetic - NIDDM.? * Social History:?Tobacco Use:?Tobacco use other than smoking?Are you an other tobacco user??No ?Tobacco Control (Standard)?Tobacco use:?Nonsmoker ?Additional Findings: Tobacco non-user?Current nonsmoker ???Drugs/Alcohol:?Drugs?Have you used drugs other than those for medical reasons in the past 12 months??No ???Miscellaneous:?Caffeine: yes, 2-3 cups per day. 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 ???Drug/Alcohol:?AUDIT-C (Standard)?Did you have a drink containing alcohol in the past year??Yes ?How often did you have six or more drinks on one occasion in the past year??Declined to specify (0 point) ?How many drinks did you have on a typical day when you were drinking in the past year??Declined to specify (0 point) ?How often did you have a drink containing alcohol in the past year??Monthly or less (1 point) ?Points?1 ?Interpretation?Negative * Allergies:?Blue Crab (Diagno stic). Objective: * Vitals:? Assessment: Plan: * Treatment: * Images: * The named appointment provid er may or may not be the originator of this progress note, and it is not deemed complete until electronically signed by the appointment provider. Sign off status: Pending * Provider:?Isiah Garcia D.P.M. Date:?05/28 Generated for Diana goins/Julio Cesar/Clivesmitting on:?07/15/2024 12:40 PM EST
--- OUTSIDE RECORDS SUMMARY | 2024-07-15 12:41 | XMS_ITS ---
Author Organization [facility] Address [address] [place] [address] Care Team Providers Care Packing House Supervisor Name Role Phone Rin Ricci [phone] REASON FOR VISIT CX todays appt Encounters Encounter Location Date Provider Diagnosis [address] [address] 06/12/2024 Rin Ricci Plan Of Treatment No Information Progress Notes * Anton NOVAKDOB:1985 ([age] yo M)Acc No.[id number]:06/12/2024 Patient:?Anton NOVAK :1985???Age:38 Y???Sex:Male Address:[address] [place] [address], [id number] * true * Date:? Generated for Katelyni briseida/Julio Cesar/eTransmitting on:?07/15/2024 12:40 PM EST
--- OUTSIDE RECORDS SUMMARY | 2024-07-15 12:41 | XMS_ITS | Patient Health Record ---
[facility] Address [address] [place] [address] Care Team Providers Care Parts Salvager Name Role Phone Rin Ricci Unavailable [phone] Isiah Garcia Unavailable [phone] Allergies Allergen (clinical drug ingredient) Drug/Non Drug Allergy documented on EMR Reaction Allergy Type Onset Date Status crab allergenic extract Blue Crab (Diagnostic) Unknown Nas g Allergy Active Reason For Referral No Information Social History Tobacco Use: Social History Observation [...] Negative Encounters Encounter Location Date Provider Diagnosis [facility] [place] [address] [place] [address] 06/12/2024 Rin Ricci Plan Of Treatment No Information Insurance Providers Payer Name Payer Address Payer Phone Subscriber Number Group Number Insured Name Patient Relationship to Insured Coverage Start Date Coverage End Date [facility] All Others [address] [place] [address] [id number] Anton Novak Self - patient is the insured Medical (General) History Medical History History ICD Code asthma covid-19 Headaches/Migraines Replacement Heart Valves Surgical History Surgery Date(Month/Year) heart aortic 02/08/2001 hernia 03/2023
== END 2024-07-15 11:56 | disposition home or self-care (01) ==
PROVIDERS: PCP Internal Medicine; Visit Provider Surgery
DX: K57.20 Diverticulitis of large intestine with perforation and abscess without bleeding (principal)
CPT/HCPCS: 99213

== ENCOUNTER 2024-09-16 14:54 | Emergency (ER) | payer BC, SELFPAY ==
--- NOTE | ~2024-09-16 | XR_ITS ---
EXAMINATION: XR CHEST CLINICAL INFORMATION: Coughing and SOB COMPARISON: August 29, 2010 is not available on PACS. TECHNIQUE: Frontal view of the chest was obtained. FINDINGS: No consolidation, pleural effusion or pneumothorax. Cardiomediastinal silhouette size is normal. Mild multilevel thoracic spondylosis. Degenerative changes in the right acromioclavicular joint. XR/XR chest 1V IMPRESSION: No acute airspace disease. Electronically signed by: Jarad Santana MD 09/16/2024 03:55 PM EDT
--- NOTE | 2024-09-16 14:57 | ECG_ITS ---
Test Reason : CHEST PAIN Blood Pressure : */* mmHG Vent. Rate : 83 BPM Atrial Rate : 83 BPM P-R Int : 150 ms QRS Dur : 102 ms QT Int : 388 ms P-R-T Axes : 12 -19 -8 degrees QTcB Int : 455 ms Normal sinus rhythm Minimal voltage criteria for LVH, may be normal variant ( R in aVL ) Borderline ECG When compared with ECG of 29-Aug-2010 20:06, No significant change was found Referred By: Generic ED Physician Electronically Signed By: RICKIE DEAL
[2024-09-16 15:36] VITALS: BP 112/64; PULSE 81; RESP 16; TEMP 37.1; O2SAT 98; BMI 33.7
--- NOTE | 2024-09-16 15:43 | ED.GENADULT ---
HPI - General Adult General Chief complaint: Upper Respiratory Symptoms Stated complaint: Chest pain Time Seen by Provider: 09/16/24 20:19 Source: patient Mode of arrival: ambulatory Limitations: no limitations History of Present Illness ED Provider: Feliciano Yadav HPI narrative: 39 yold healthy male presents to the ED for URI Symptoms. Patient states coughing, sore throat, pleurisy, bodyaches, or chills. patient denies any calf pain, leg swelling, recent travel, recent surgery, dizziness, chest pain, shortness of breath, or weakness. Related Data Previous Rx's ?Medication ?Instructions ?Recorded amoxicillin 875 mg-potassium 1 tab PO BID #28 tabs 08/13/24 clavulanate 125 mg tablet benzonatate 200 mg capsule 200 mg PO TID PRN cough 5 days #15 09/16/24 caps Allergies Allergy/AdvReac Type Severity Reaction Status Date / Time No Known Allergies Allergy Verified 09/16/24 15:38 [No Known Allergies*] Review of Systems Review of Systems: coughing, sore throat, pleurisy, chills, bodyaches Yes all other systems are reviewed and are negative PMF Past Medical History Surgical History Hx of right inguinal hernia repair Hx of appendectomy Social History Social History Household Members: Spouse and Children Alcohol intake: current Alcohol intake frequency: holidays/special occasions only Patient Tobacco Use Status: Never used Tobacco Advance Directives: No Advance Directives Information Provided: No service: No Physical Exam ED Vital Signs: Vital Signs - 24 hr 09/16/24 15:36 Temperature 98.8 F Pulse Rate 81 Respiratory Rate 16 Blood Pressure 112/64 Pulse Oximetry 98 Oxygen Delivery Method Room Air BMI result Body Mass Index 33.7 Const General: cooperative, healthy appearing, comfortable, no acute distress and well developed Orientation/consciousness: patient oriented x3 HENMT Head: Yes normal to inspection, Yes No palpable skull fracture present, Yes normocephalic and Yes atraumatic Ears: hearing grossly normal bilaterally, external ears normal, TM's normal bilaterally, TM normal on the right, TM normal on the left, EAC's normal, mastoids normal and no periauricular adenopathy Throat: Yes posterior oropharynx normal, Yes tonsils normal and Yes uvula midline Eyes General: appearance normal, both eyes and all related structures Neck Neck: Yes normal visual inspection, Yes full ROM, Yes no lymphadenopathy, Yes no meningeal signs, Yes trachea midline, Yes supple, No anterior neck swelling and No tender Chest Chest palpation & inspection: normal inspection of the chest and normal palpation of entire chest wall Resp Effort & Inspection: normal respiratory effort and able to speak in complete sentences Auscultation: clear to auscultation bilaterally Cardio Jugular venous distension: no JVD Heart sounds: S1 normal heart sound present and S2 normal heart sound present GI Inspection: Yes normal to inspection Palpation (GI): Soft to palpation, not firm, nontender, no guarding and not rigid General: Yes no CVA tenderness Back/Spine/Pelvis Back: no CVA tenderness and No erythema Skin General skin exam: no rashes or lesions noted, elasticity normal and turgor normal Neuro General: patient oriented x3, gait normal, tone normal, moves all extremities, Normal light touch and pain sensation, no meningeal signs, no focal motor deficits and CN's II-XI intact bilaterally Extrem Other: Bilateral lower extremities negative for swelling, pitting edema, or calf tenderness. motor, neuro, and vascular exam is intact. General: Yes normal to inspection, Yes full ROM and Yes capillary refill normal Psych Appearance: grossly normal, well kempt and not disheveled Course Course Course Narrative: RME; 39-year-old male presents to ED for sore throat, pleurisy, coughing, chest pain or shortness of breath. Labs EKG chest x-ray ordered. Negative for any swelling or pitting edema of lower extremities. Lungs are clear Medical Decision Making Medical Decision Making MDM Narrative: 29-year-old male presents to ED for URI symptoms with pleurisy. Patient states sore throat, cough, chest pain, body aches, chills, and shortness of breath. Patient denies any recent long travel or recent surgery. Negative for any leg swelling or calf pain. EKG troponin D-dimer negative. Heart score 0. Perc score is 0. SARs COVID influenza strep came back negative. Patient is safe for discharge. Patient explained worrisome signs and informed to return to the ED immediately. Not suspecting PE, ND, CHF, Pericarditits, Cardiac Tamponade, or any other concernging symptoms. Differential Diagnosis Differential Diagnoses: The differential diagnosis associated with the presentation includes (pneumonia, Sars, RSV, INlfuenza, or covid) Admission/Observation Consideration of admission/observation: Escalation of care including admission/observation considered Lab Data MDM Lab Attestation statement: I reviewed the patient's lab results. 09/16/24 16:29 09/16/24 16:29 Labs: Lab Results 09/16/24 09/16/24 09/16/24 Range/Units 16:28 16:29 19:50 WBC 9.9 (4.8-10.8) X10*3/uL RBC 5.71 (4.60-5.80) X10*6/uL Hgb 16.4 (14.0-18.0) g/dl Hct 46.8 (42.0-52.0) % MCV 82.0 (80.0-98.0) fL MCH 28.7 (27.0-33.0) pg MCHC 35.0 (31.0-36.0) g/dl RDW 12.3 (11.0-16.0) % Plt Count 259 (160-400) X10*3/uL MPV 10.2 (9.4-12.4) fL Immature Gran % (Auto) 0.3 (0.0-0.4) % Neut % (Auto) 68.2 (45-73) % Lymph % (Auto) 23.1 (20-40) % [place] % (Auto) 7.4 (2-11) % Eos % (Auto) 0.6 (0-4) % Baso % (Auto) 0.4 (0-2) % Lymph # (Auto) 2.3 (1.2-4.9) X10*3/uL [place] # (Auto) 0.7 (0.1-1.2) X10*3/uL Eos # (Auto) 0.1 (0.0-0.4) X10*3/uL Baso # (Auto) 0.0 (0.0-0.2) X10*3/uL Abs Immat Gran (auto) 0.03 (0.00-0.03) X10*3/uL Absolute Neuts (auto) 6.8 (2.0-8.3) x10*3/uL Absolute Nucleated RBC 0.000 (0.0-0.012) X10*3/uL Nucleated RBC % (auto) 0.0 (0.0-0.2) /100WBC Smear Tech's Comments VERIFIED PT 12.3 (10.9-12.4) SEC INR 1.1 (0.9-1.1) APTT 35.7 (26.0-36.8) SEC D-Dimer High Sensitivty < 150 NG/ML Sodium 141 (135-145) mmol/L Potassium 4.3 (3.3-5.1) mmol/L Chloride 105 (96-108) mmol/L Carbon Dioxide 26 (22-29) mmol/L Anion Gap 14 (12-20) BUN 10 (9-16) mg/dL Creatinine 0.79 (0.5-1.4) mg/dL Estim Creat Clear Calc 150.3 Estimated GFR > 60 Random Glucose 102 (60-115) mg/dL Calcium 9.4 (8.4-10.2) mg/dL Total Bilirubin 0.7 (0.0-1.0) mg/dL AST 28 (5-37) U/L ALT 43 H (0-40) U/L Alkaline Phosphatase 113 (39-117) U/L Troponin I High Sens < 2.7 (<3.5-35.0) ng/L B-Natriuretic Peptide < 10 (<100) pg/mL Total Protein 8.1 H (6.5-8.0) g/dL Albumin 4.7 (3.5-5.0) g/dL Influenza Type A (PCR) NEGATIVE (Negative) Influenza Type B (PCR) NEGATIVE (Negative) RSV RNA Qual (PCR) NEGATIVE (Negative) SARS-CoV-2 RNA (RT-PCR) NEGATIVE (Negative) S. pyogenes GrpA LU Negative (Negative) Independent Interpretation I performed an independent interpretation of an: EKG (normal SInus rhyhtm) and Plain X-Ray Radiology Impression Discussion of test interpretation with radiology: I have reviewed the radiologist's reading. Independent Historian Clinical information obtained from an independent historian. History obtained from or confirmed by: Other (patient) Prescription Management I considered prescription management with: Other (Cough medication) Discharge Plan Discharge Clinical Impression: Upper respiratory infection Patient Disposition: Home, Self-Care Instructions: Upper Respiratory Infection (ED) Additional Instructions: Your EKG blood work chest x-ray were reassuring. You came back negative for SARS COVID, influenza, or strep. Recommend follow-up with your primary care provider. Return to the ED immediately for any chest pain, shortness of breath, weakness, dizziness, leg swelling, calf pain, coughing up blood, pleurisy which is chest pain on inspiration, drooling, change in voice, inability tolerate solid food/liquid, or any other concerning symptoms. Prescriptions: New benzonatate 200 mg capsule 200 mg PO TID PRN (Reason: cough) 5 Days Qty: 15 0RF No Action amoxicillin-pot clavulanate 875-125 mg tablet 1 tab PO BID Qty: 28 0RF Referrals: Arden Wilson MD [Primary Care Provider] - (URI. Viral pharyngitis) Stand Alone Forms: Work/School Release Interventions: ED Discharge Assessment Last Done: 09/16/24 21:06 Discharge Date/Time: 09/16/24 21:07 Print Language: Vietnamese
[2024-09-16 16:40] LABS: INTERNATIONAL NORM RATIO 1.1 (0.9-1.1); Prothrombin Time 12.3 SEC (10.9-12.4)
[2024-09-16 16:43] LABS: Partial Thromboplastin Time 35.7 SEC (26.0-36.8)
[2024-09-16 16:46] LABS: Basophils Percent Auto 0.4 % (0-2); Eosinophils Absolute Auto 0.1 X10*3/uL (0.0-0.4); Eosinophils Percent Auto 0.6 % (0-4); Hematocrit 46.8 % (42.0-52.0); Hemoglobin 16.4 g/dl (14.0-18.0); Imm Gran Abs Auto 0.03 X10*3/uL (0.00-0.03); Imm Gran Pct Auto 0.3 % (0.0-0.4); Lymphocytes Absolute Auto 2.3 X10*3/uL (1.2-4.9); Lymphocytes Percent Auto 23.1 % (20-40); MANUAL DIFF FLAG SCAN; Mean Corpuscular Hemoglobin 28.7 pg (27.0-33.0); Mean Platelet Volume 10.2 fL (9.4-12.4); Monocytes Absolute Auto 0.7 X10*3/uL (0.1-1.2); Monocytes Percent Auto 7.4 % (2-11); Neutrophils Absolute Auto 6.8 x10*3/uL (2.0-8.3); Neutrophils Percent Auto 68.2 % (45-73); PLT CLUMP 1; Red Blood Count 5.71 X10*6/uL (4.60-5.80); Red Cell Distribution Width 12.3 % (11.0-16.0); SCAN SMEAR FLAG 1
[2024-09-16 16:48] LABS: D Dimer High Sensitivity < 150 NG/ML
[2024-09-16 17:01] LABS: Platelet Count 259 X10*3/uL (160-400); White Blood Count 9.9 X10*3/uL (4.8-10.8)
[2024-09-16 17:02] LABS: SLIDE REVIEW VERIFIED
[2024-09-16 17:04] LABS: B Type Natriuretic Peptide < 10 pg/mL (<100)
[2024-09-16 17:06] LABS: Alanine Aminotransferase 43 U/L (0-40); Albumin Level 4.7 g/dL (3.5-5.0); Anion Gap 14 (12-20); Aspartate Amino Transferase 28 U/L (5-37); Bilirubin Total 0.7 mg/dL (0.0-1.0); Blood Urea Nitrogen 10 mg/dL (9-16); Calcium 9.4 mg/dL (8.4-10.2); Carbon Dioxide 26 mmol/L (22-29); Chloride 105 mmol/L (96-108); Creatinine Clr Calc Pharmacy 150.3; Estimated Glomerular Filt Rate > 60; Glucose Random 102 mg/dL (60-115); Potassium 4.3 mmol/L (3.3-5.1); Sodium 141 mmol/L (135-145); Total Protein 8.1 g/dL (6.5-8.0)
[2024-09-16 17:17] LABS: Troponin-I High Sensitivity < 2.7 ng/L (<3.5-35.0)
[2024-09-16 17:19] LABS: Influenza A PCR NEGATIVE (Negative); Influenza B PCR NEGATIVE (Negative); Resp Syncy Virus RNA Qual PCR NEGATIVE (Negative); SARS COV2 PCR INHOUSE NEGATIVE (Negative)
[2024-09-16 17:23] LABS: Alkaline Phosphatase 113 U/L (39-117)
[2024-09-16 20:06] LABS: IDNOW Serial# 6674DD1D; Strep A Nucleic Acid Negative (Negative)
[2024-09-16 21:06] VITALS: BP 112/64; PULSE 81; RESP 16; TEMP 37.1; O2SAT 98
== END 2024-09-16 21:07 | disposition home or self-care (01) ==
PROVIDERS: Physician Assistant; Emergency Provider Emergency Medicine; PCP Internal Medicine
DX: J06.9 Acute upper respiratory infection, unspecified (principal); R07.89 Other chest pain; R06.02 Shortness of breath; Z03.818 Encounter for observation for suspected exposure to other biological agents ruled out; Z79.899 Other long term (current) drug therapy
CPT/HCPCS: 0241U; 36415; 71045; 80053; 83880; 84484; 85025; 85379; 85610; 85730; 87651; 93005; 99283

== ENCOUNTER → 2024-09-16 14:57 | Outpatient (BNV) | payer BC, SELFPAY | PROVIDERS: Emergency Provider Emergency Medicine; PCP Internal Medicine; Visit Provider Internal Medicine | DX: R07.9 Chest pain, unspecified (principal) | CPT/HCPCS: 93010 ==

== ENCOUNTER → 2024-09-16 15:41 | Outpatient (BNV) | payer BC, SELFPAY | PROVIDERS: Visit Provider Radiology Diagnostic Radiology | DX: R05.9 Cough, unspecified (principal); R06.02 Shortness of breath | CPT/HCPCS: 71045 ==